=== PATIENT | female | born 1970 | race African-American/Black ===

== ENCOUNTER 2017-03-04 06:50 | Emergency (ER) | payer OTHER, MEDICAID | END 2017-03-04 09:16 | disposition left against medical advice (07) | LOC: ER 06:50 | DX: Z00.8 Encounter for other general examination (principal); Z53.21 Procedure and treatment not carried out due to patient leaving prior to being seen by health care provider ==

== ENCOUNTER 2022-02-06 03:32 | Inpatient (IN) | payer BC, MEDICAID ==
[~2022-02-06] VITALS: Ht 162.6 cm; Wt 140.6 kg
[2022-02-06] MEDS ORDERED: KETOROLAC 30MG/ML VIAL IV STA (05:26)
[2022-02-06] MEDS ORDERED: SODIUM CHLORIDE 0.9% 1,000 ML IV ONE ×3 (05:30→15:15)
[2022-02-06 05:46] LABS: HEMATOCRIT. 33.3 % (36.0-48.0); HEMOGLOBIN. 11.6 g/dL (12.0-16.0); MEAN CORPUSCULAR HEMOGLOBIN 27.4 pg (28.0-32.0); MEAN CORPUSCULAR VOLUME 79.1 fL (81.0-99.0); MEAN PLATELET VOLUME 8.9 fl (7.4-10.4); PLATELET 197 x1000/uL (130-400); RED BLOOD CELL COUNT 4.21 mill/uL (4.2-5.4); RED CELL DISTRIBUTION WIDTH 15.8 % (11.6-14.6)
[2022-02-06 05:48] LABS: CHLORIDE 110 mEq/L (98-107); HCG SCREEN NEGATIVE
[2022-02-06 06:39] LABS: PLATELET ESTIMATE NORMAL
[2022-02-06] MEDS ORDERED: MORPHINE SULFATE 4 MG/ML CPJ (NOT FOR IM USE) IV STA (06:43)
[2022-02-06] MEDS ORDERED: ONDANSETRON HCL 4MG/2ML INJ IV STA (06:43)
[2022-02-06 06:44] LABS: CLARITY URINE TURBID (CLEAR); COLOR URINE ORANGE (YELLOW); KETONES URINE TRACE (NEGATIVE); LEUKOCYTE ESTERASE URINE 1+ (NEGATIVE); NITRITE URINE POSITIVE (NEGATIVE); OCCULT BLOOD URINE NEGATIVE (NEGATIVE); PROTEIN URINE 1+ (NEGATIVE); SPECIFIC GRAVITY URINE 1.028 (1.005-1.030)
[2022-02-06] MEDS ORDERED: CEFTRIAXONE 1 G PREMIX 50 ML IV ONE (08:30)
[2022-02-06] MEDS ORDERED: CEFTRIAXONE 1 G PREMIX 50 ML IV NR (10:45)
[2022-02-06] MEDS ORDERED: MORPHINE SULFATE 2 MG/ML CPJ (NOT FOR IM USE) IV NR (15:15)
[2022-02-06] MEDS ORDERED: NALOXONE HCL 0.4MG/ML VIAL IV PRN (15:30)
[2022-02-06 16:48] VITALS: BP 106/72
[2022-02-06] MEDS: SODIUM CHLORIDE 0.9% 1,000 ML IV SCH (17:15)
[2022-02-06] MEDS ORDERED: PIPERACILLIN/TAZ 3.375G PREMIX 50 ML IV SCH (17:15)
[2022-02-06] MEDS ORDERED: ONDANSETRON HCL 4MG/2ML INJ IV PRN (17:15)
[2022-02-06] MEDS ORDERED: NAPR-681 PO (17:34)
[2022-02-06] MEDS: KETOROLAC 30MG/ML VIAL IV SCH ×2 (18:22→23:15)
[2022-02-06] MEDS: MORPHINE SULFATE 2 MG/ML CPJ (NOT FOR IM USE) IV PRN (18:22)
[2022-02-06] MEDS ORDERED: PNEUMOCOCCAL 23-VAL P-SAC VAC 0.5 ML IM ONE (18:30)
[2022-02-06] MEDS: PIPERACILLIN/TAZOBACTAM 3.375G in DEXT 5% WATER 50ML IV SCH (18:41)
[2022-02-06 20:00] VITALS: BP 97/61
[2022-02-06] MEDS: ENOXAPARIN 40MG/0.4ML SYR SUBCUT SCH (21:00)
[2022-02-07] MEDS: SODIUM CHLORIDE 0.9% 1,000 ML IV SCH (01:15)
[2022-02-07 04:00] VITALS: BP 97/67
[2022-02-07] MEDS: KETOROLAC 30MG/ML VIAL IV SCH (05:15)
[2022-02-07] MEDS: PIPERACILLIN/TAZOBACTAM 3.375G in DEXT 5% WATER 50ML IV SCH ×3 (06:00→22:02)
[2022-02-07 08:00] VITALS: BP 115/64
[2022-02-07 08:15] LABS: HEMATOCRIT. 32.6 % (36.0-48.0); HEMOGLOBIN. 10.6 g/dL (12.0-16.0); MEAN CORPUSCULAR HEMOGLOBIN 26.5 pg (28.0-32.0); MEAN CORPUSCULAR VOLUME 81.3 fL (81.0-99.0); MEAN PLATELET VOLUME 9.6 fl (7.4-10.4); PLATELET 117 x1000/uL (130-400); RED BLOOD CELL COUNT 4.01 mill/uL (4.2-5.4)
[2022-02-07] MEDS: ENOXAPARIN 40MG/0.4ML SYR SUBCUT SCH ×2 (11:04→20:11)
[2022-02-07] MEDS: PANTOPRAZOLE 40MG DR TABLET PO SCH ×2 (11:04→20:11)
[2022-02-07 12:00] VITALS: BP 100/71
[2022-02-07 12:54] LABS: PLATELET ESTIMATE SLIGHTLY DECREASED
[2022-02-07] MEDS: SODIUM BICARBONATE 100 MEQ in DEXTROSE 5% WATER 1,000 ML IV SCH (15:00)
[2022-02-07 16:00] VITALS: BP 110/71
[2022-02-08] MEDS: SODIUM BICARBONATE 100 MEQ in DEXTROSE 5% WATER 1,000 ML IV SCH ×2 (02:00→12:56)
[2022-02-08] MEDS: PIPERACILLIN/TAZOBACTAM 3.375G in DEXT 5% WATER 50ML IV SCH ×3 (05:15→22:00)
[2022-02-08 05:39] LABS: HEMATOCRIT. 34.2 % (36.0-48.0); HEMOGLOBIN. 11.1 g/dL (12.0-16.0); MEAN CORPUSCULAR HEMOGLOBIN 26.3 pg (28.0-32.0); MEAN CORPUSCULAR VOLUME 80.8 fL (81.0-99.0); MEAN PLATELET VOLUME 9.7 fl (7.4-10.4); PLATELET 98 x1000/uL (130-400); RED BLOOD CELL COUNT 4.23 mill/uL (4.2-5.4); RED CELL DISTRIBUTION WIDTH 15.6 % (11.6-14.6)
[2022-02-08 08:00] VITALS: BP 120/81
[2022-02-08] MEDS ORDERED: LIDOCAINE HCL/PF 1% 2ML VIAL ONE (09:00)
[2022-02-08] MEDS: ENOXAPARIN 40MG/0.4ML SYR SUBCUT SCH (09:00)
[2022-02-08] MEDS: PANTOPRAZOLE 40MG DR TABLET PO SCH ×2 (09:03→21:37)
[2022-02-08] MEDS: MORPHINE SULFATE 2 MG/ML CPJ (NOT FOR IM USE) IV PRN ×2 (09:21→21:36)
[2022-02-08 11:09] LABS: PLATELET ESTIMATE SLIGHTLY DECREASED
[2022-02-08] MEDS ORDERED: DEXTROSE 50% WATER 50ML SYRINGE IV NR (11:30)
[2022-02-08 12:00] VITALS: BP 106/81
[2022-02-08 12:15] VITALS: BP 106/81
[2022-02-08 13:09] LABS: BG BASE EXCESS -8.7 mmol/L (-2.0-2.0); BG DEOXYHEMOGLOBIN 7.9 % (0.0-5.0); BG FRACTION INSPIRED OXYGEN 21; BG HCO3 ACT 14.6 mmol/L (22.0-26.0); BG METHEMOGLOBIN 0.3 % (0.0-1.5); BG OXYGEN SATURATION 92.1 % (92.0-98.5); BG OXYHEMOGLOBIN 91.8 % (94.0-97.0); BG PH 7.385 (7.350-7.450); BG PO2 67.5 mmHg (75.0-100.0); BG SAMPLE SITE LEFT RADIAL; BG TOTAL HEMOGLOBIN 12.4 g/dL (12.0-18.0); BG VENT MODE ROOM AIR
[2022-02-08 16:00] VITALS: BP 107/61
[2022-02-08 20:00] VITALS: BP 111/69
[2022-02-09] VITALS: BP 103/61
[2022-02-09 04:00] VITALS: BP_SYST 105; BP_SYST 143; BP_DIAS 53; BP_DIAS 65
[2022-02-09] MEDS: SODIUM BICARBONATE 100 MEQ in DEXTROSE 5% WATER 1,000 ML IV SCH ×3 (04:38→21:25)
[2022-02-09] MEDS: PIPERACILLIN/TAZOBACTAM 3.375G in DEXT 5% WATER 50ML IV SCH ×2 (05:09→13:23)
[2022-02-09 08:00] VITALS: BP 112/65
[2022-02-09] MEDS: ENOXAPARIN 40MG/0.4ML SYR SUBCUT SCH (09:00)
[2022-02-09] MEDS: PANTOPRAZOLE 40MG DR TABLET PO SCH ×2 (09:12→21:27)
[2022-02-09 12:00] VITALS: BP 107/79
[2022-02-09 13:15] LABS: HEMATOCRIT. 33.3 % (36.0-48.0); HEMOGLOBIN. 10.9 g/dL (12.0-16.0); MEAN CORPUSCULAR HEMOGLOBIN 26.2 pg (28.0-32.0); MEAN CORPUSCULAR VOLUME 79.6 fL (81.0-99.0); MEAN PLATELET VOLUME 10.2 fl (7.4-10.4); PLATELET 103 x1000/uL (130-400); RED BLOOD CELL COUNT 4.18 mill/uL (4.2-5.4)
[2022-02-09 13:27] LABS: CHLORIDE 106 mEq/L (98-107)
[2022-02-09 16:00] VITALS: BP 100/68
[2022-02-09] MEDS ORDERED: ACETAMINOPHEN 325MG TABLET PO PRN (16:00)
[2022-02-09 18:16] LABS: PLATELET ESTIMATE DECREASED
[2022-02-09 20:00] VITALS: BP 104/66
[2022-02-10] VITALS: BP 114/78
[2022-02-10 04:00] VITALS: BP 117/68
[2022-02-10] MEDS: PIPERACILLIN/TAZOBACTAM 3.375G in DEXT 5% WATER 50ML IV SCH ×4 (06:05→22:00)
[2022-02-10] MEDS: PANTOPRAZOLE 40MG DR TABLET PO SCH ×2 (06:07→21:00)
[2022-02-10 08:00] VITALS: BP 115/74
[2022-02-10] MEDS ORDERED: LIDOCAINE HCL/PF 1% 10 MG/ML 5ML VIAL ONE (08:11)
[2022-02-10] MEDS: SODIUM BICARBONATE 100 MEQ in DEXTROSE 5% WATER 1,000 ML IV SCH ×2 (09:34→20:00)
[2022-02-10] MEDS: ENOXAPARIN 40MG/0.4ML SYR SUBCUT SCH (09:36)
[2022-02-10 12:00] VITALS: BP 102/75
[2022-02-10 16:00] VITALS: BP 95/70
[2022-02-10 17:57] LABS: HEMATOCRIT. 30.2 % (36.0-48.0); HEMOGLOBIN. 10.1 g/dL (12.0-16.0); MEAN CORPUSCULAR HEMOGLOBIN 26.1 pg (28.0-32.0); MEAN CORPUSCULAR VOLUME 77.7 fL (81.0-99.0); RED BLOOD CELL COUNT 3.88 mill/uL (4.2-5.4); RED CELL DISTRIBUTION WIDTH 15.8 % (11.6-14.6)
[2022-02-10 19:07] LABS: MEAN PLATELET VOLUME 9.7 fl (7.4-10.4); PLATELET 120 x1000/uL (130-400)
[2022-02-10 19:09] LABS: PLATELET ESTIMATE DECREASED
[2022-02-10 20:00] VITALS: BP 124/78
[2022-02-10] MEDS ORDERED: DEXTROSE 50% WATER 50ML SYRINGE IV ONE (20:07)
[2022-02-11] VITALS: BP 144/85
[2022-02-11 04:00] VITALS: BP 104/46
[2022-02-11] MEDS: PIPERACILLIN/TAZOBACTAM 3.375G in DEXT 5% WATER 50ML IV SCH ×2 (06:39→14:47)
[2022-02-11 07:34] LABS: BASOPHILS % 0.2 % (0.0-2.0); EOSINOPHILS % 0.4 % (0.0-5.0); HEMATOCRIT. 27.2 % (36.0-48.0); HEMOGLOBIN. 9.1 g/dL (12.0-16.0); LYMPHOCYTES % 16.8 % (20.0-50.0); MEAN CORPUSCULAR HEMOGLOBIN 25.8 pg (28.0-32.0); MEAN CORPUSCULAR VOLUME 76.8 fL (81.0-99.0); MEAN PLATELET VOLUME 9.6 fl (7.4-10.4); NEUTROPHILS % 76.6 % (40.0-76.0); PLATELET 107 x1000/uL (130-400); RED BLOOD CELL COUNT 3.54 mill/uL (4.2-5.4); RED CELL DISTRIBUTION WIDTH 15.6 % (11.6-14.6)
[2022-02-11 08:00] VITALS: BP 134/82
[2022-02-11] MEDS: PANTOPRAZOLE 40MG DR TABLET PO SCH (09:02)
[2022-02-11] MEDS: SODIUM BICARBONATE 100 MEQ in DEXTROSE 5% WATER 1,000 ML IV SCH (11:52)
[2022-02-11 12:00] VITALS: BP 124/72
[2022-02-11 16:00] VITALS: BP 125/78
== END 2022-02-11 17:45 | disposition home health service (06) | DRG 682 ==
LOC: ER 03:32 → EDBEDREQ 10:50 → 6EST 14:00 → EDBEDREQ 14:06 → ENRESERV 14:48 → 7WST 02-08 11:45
PROVIDERS: ADMIT Internal Medicine; ATTEND Internal Medicine
PROC: 05HY33Z Insertion of Infusion Device into Upper Vein, Percutaneous Approach (ICD-10-PCS; principal; 2022-02-10)
DX: N17.9 Acute kidney failure, unspecified (principal); G92.8 Other toxic encephalopathy; E87.2 Acidosis; E87.1 Hypo-osmolality and hyponatremia; N12 Tubulo-interstitial nephritis, not specified as acute or chronic; D72.825 Bandemia; I10 Essential (primary) hypertension; E11.9 Type 2 diabetes mellitus without complications; D64.9 Anemia, unspecified; N20.0 Calculus of kidney; E80.6 Other disorders of bilirubin metabolism; D69.6 Thrombocytopenia, unspecified; D72.829 Elevated white blood cell count, unspecified; Z88.8 Allergy status to other drugs, medicaments and biological substances; Z90.49 Acquired absence of other specified parts of digestive tract
CPT/HCPCS: 36415; 36573; 36600; 71045; 74176; 76770; 80048; 80053; 80076; 81003; 82375; 82805; 82962; 83036; 84703; 85025; 93005; 97116; 97162; 99285; C1725; C1893; J0696; J1650; J1885; J2270; J2405; J2543; J3490; J7030; J7060; J7070; A4315